=== PATIENT | male | born 1960 | race Caucasian/White ===

== ENCOUNTER 2017-09-04 08:51 | Day surgery (SDC) | payer OTHER ==
[~2017-09-04] VITALS: Ht 167.6 cm; Wt 136.0 kg
[~2017-09-04 08:51] MED LIST: CELEXA20 MG PO; LANTUS 10100 UNITS/ SC; LASIX20 MG PO; LIPITOR20 MG PO; TENORMIN50 MG PO; ULTRAM50 MG PO; ZYLOPRIM100 MG PO
[2017-09-04 09:23] LABS: POINT-OF-CARE METER ID UU14174212
[2017-09-04 09:35] VITALS: BP 166/72
[2017-09-04] MEDS ORDERED: GLIPIZIDE10 MG PO (09:35)
[2017-09-04 10:40] LABS: POINT-OF-CARE METER ID UU14174212
[2017-09-04] MEDS ORDERED: PERCOCET 5/31 TABLET PO (13:48)
[2017-09-04 14:21] LABS: POINT-OF-CARE METER ID UU13113675; POINT-OF-CARE USER ID 515036437
[2017-09-04 14:50] VITALS: BP 189/93
[2017-09-04 15:30] VITALS: BP 197/78
== END 2017-09-04 15:55 | disposition home or self-care (01) ==
LOC: SDC 08:51
PROVIDERS: Surgery
DX: A63.0 Anogenital (venereal) warts (principal); K62.82 Dysplasia of anus; K64.4 Residual hemorrhoidal skin tags; E66.9 Obesity, unspecified; Z68.42 Body mass index [BMI] 45.0-49.9, adult; F17.200 Nicotine dependence, unspecified, uncomplicated; E11.9 Type 2 diabetes mellitus without complications; I10 Essential (primary) hypertension; E78.00 Pure hypercholesterolemia, unspecified; Z79.4 Long term (current) use of insulin
CPT/HCPCS: 82948; 88304; 88342 TC; 93005; J0330; J0690; J1100; J2250; J2405; J3010